=== PATIENT | male | born 1965 | race Caucasian/White ===

== ENCOUNTER 2025-04-18 09:14 | Outpatient (CLI) | payer MEDICARE, MEDICAID ==
[~2025-04-18 09:14] MED LIST: GABA300C PO; HYDR-4353 PO; LANTUS SQ; MELO15TA13 PO; METF500T PO; SOFO1TAB2 PO
--- NOTE | 2025-04-18 11:58 | RADIOLOGY REPORT ---
CT Chest without intravenous contrast INDICATION: SOLITARY PULMONARY NODULE TECHNIQUE: Multidetector spiral CT of the chest was performed from the lung apices to the upper abdom en. Axial, coronal and sagittal multiplanar reformats were performed. Radiation dose : Chest: CTDI volume is 18 mGy. Dose-length product is 715 mGy*cm The dose indicators for CT are the volume computed tomography (CT) dose index (CTDIvol) and the dose length product (DLP), and are measured in units of mGy and mGy-cm, respectively. These indicators are not patient dose, but values generated from the CT scanner acquisition factors. The report includes radiation exposure data for exposures received during this examination. Comparison: None Findings: Lower neck: Normal thyroid. Lungs: Calcified nodule in the lingula. Heart/Vascular Structures: Normal heart size. No pericardial effusion. Lymph Nodes: No adenopathy Pleura: No pleural effusion or significant pneumothorax. Musculoskeletal: No acute osseous abnormality. Soft tissues: Normal. Upper abdomen: Limited portions of the upper abdomen are unremarkable. IMPRESSION: 1. Calcified granuloma in the lingula. Radiation optimization: All CT scans at this facility use at least one of these dose optimization tiana hniques: Automated exposure control mA and/or kV adjustment per patient size (includes targeted exams where dose is matched to clinical indication) or iterative reconstruction. HS:Y
== END 2025-04-18 23:59 | disposition home or self-care (01) ==
LOC: 64 CT 09:14
PROVIDERS: ATTEND Nurse Practitioner
DX: R91.1 Solitary pulmonary nodule (principal); J84.10 Pulmonary fibrosis, unspecified
CPT/HCPCS: 71250